=== PATIENT | male | born 1990 | race Caucasian/White ===

== ENCOUNTER 2017-03-11 10:59 | Observation (INO) | payer OTHER ==
--- NOTE | 2017-03-11 11:34 | ED PDOC ---
Lower Extremity Pain/Injury Time Seen by Provider: 03/11/17 11:19 Chief Complaint (Nursing): Lower Extremity Problem/Injury Chief Complaint (Provider): right ankle pain History Per: Patient Additional Complaint(s): 26-year-old male presents to emergency Department with pain to right ankle. Patient states he was running during football game when he felt a pop to posterior right ankle. Patient now unable to bear any weight. Injury occurred about half an hour prior to arrival, patient took cab immediately to ED. Past Medical History Reviewed: Historical Data, Nursing Documentation, Vital Signs Vital Signs: Last Vital Signs Temp 97.6 F 03/11/17 11:04 Pulse 96 H 03/11/17 11:04 Resp 20 03/11/17 11:04 BP 141/89 03/11/17 11:04 Pulse Ox 99 03/11/17 11:04 - Medical History PMH: No Chronic Diseases - Surgical History Surgical History: No Surg Hx - Family History Family History: States: No Known Family Hx - Living Arrangements Living Arrangements: With Family - Social History Current smoker - smoking cessation education provided: No Alcohol: None Drugs: Denies - Home Medications Home Medications: Ambulatory Orders Medication Instructions Recorded No Known Home Med 03/11/17 - Allergies Allergies/Adverse Reactions: Allergies Allergy/AdvReac Type Severity Reaction Status Date / Time Sulfa (Sulfonamide Allergy RASH Verified 03/11/17 11:51 Antibiotics) Wells Criteria for PE - Wells Criteria for Pulmonary Embolism Clinical Signs and Symptoms of DVT: No P.E is #1 Diagnosis, or Equally Likely: No Heart Rate >100: No Immobilization at least 3 days;Surgery previous 4 weeks: No Previous, objectively diagnosed PE or DVT: No Hemoptysis: No Malignancy w/treatment within 6 months, or palliative: No Total Score: 0 Review of Systems ROS Statement: Except As Marked, All Systems Reviewed And Found Negative Constitutional: Positive for: Fever Musculoskeletal: Positive for: Other (right ankle injury) Physical Exam - Reviewed Nursing Documentation Reviewed: Yes Vital Signs Reviewed: Yes - Physical Exam Appears: Positive for: Well, Non-toxic, No Acute Distress Cardiovascular/Chest: Positive for: Regular Rate, Rhythm Respiratory: Positive for: Normal Breath Sounds Extremity: Positive for: Other (swelling and tenderness to posterior right ankle with disruption to normal contour of achilles tendon suspicious for achilles tendon rupture. Positive Gonzalez Test, normal distal sensation to right foot, normal cap refill) Neurologic/Psych: Positive for: Alert, Oriented - Laboratory Results Result Diagrams: 03/11/17 14:30 03/11/17 14:30 - ECG Interpretation Of ECG: NSR 83 bpm with sinus arrhythmia, reviewed by PA and ED attending O2 Sat by Pulse Oximetry: 99 Pulse Ox Interpretation: Normal - Other Rad MRI Right Ankle X-Ray: Read By Radiologist X-Ray Interpretation: ruptured achilles tendon bedside chest X-Ray: Interpreted by Me, Viewed By Me X-Ray Interpretation: no acute finding Medical Decision Making Medical Decision Makin26 year old with right ankle pain Plan: X-ray right ankle Podiatry consult Pain meds declined 11:30 am: Podiatry resident, Emily Stout at bedside. MRI of right ankle ordered to assess for achilles tendon injury. X-ray cancelled. As per podiatry patient will be admitted and will go to OR this evening at about 6 pm. Patient agrees to stay. Patient will be kept NPO. Patient was admitted to medicine catering convention services manager, Jarrell Lamb NP. Disposition - Clinical Impression Clinical Impression: Achilles tendon rupture - Patient ED Disposition Is Patient to be Admitted: Yes - Disposition Disposition Time: 13:58 Condition: FAIR - Pt Status Changed To: Hospital Disposition Of: Inpatient - Admit Certification Admit to Inpatient:: After my assessment, the patient will require hospitalization for at least two midnights. This is because of the severity of symptoms shown, intensity of services needed, and/or the medical risk in this patient being treated as an outpatient. - POA Present On Arrival: None Results - Lab Results Lab Results: 03/11/17 14:30 WBC 13.2 H RBC 5.03 Hgb 15.1 Hct 44.2 MCV 87.8 MCH 30.1 MCHC 34.2 RDW 12.5 Plt Count 275 MPV 9.2 Neut % (Auto) 70.1 Lymph % (Auto) 17.9 L [place] % (Auto) 8.1 Eos % (Auto) 3.6 Baso % (Auto) 0.3 Neut # 9.3 H Lymph # 2.4 [place] # 1.1 H Eos # 0.5 Baso # 0.0 Sodium 145 Potassium 4.2 Chloride 103 Carbon Dioxide 26 Anion Gap 21 H BUN 10 Creatinine 0.7 L Est GFR ( Amer) > 60 Est GFR (Non-Af Amer) > 60 Random Glucose 97 Calcium 9.7 Total Bilirubin 0.7 AST 42 ALT 50 Alkaline Phosphatase 116 Total Protein 8.5 H Albumin 4.5 Globulin 3.9 Albumin/Globulin Ratio 1.1 Blood Type Pending Antibody Screen Pending BBK History Checked No verified bt
--- NOTE | 2017-03-11 12:16 | CP.PCM.CON ---
History of Present Illness - History of Present Illness History of Present Illness: 26 y/o male with no known past medical history seen at bedside in the ED for right ankle injury. patient states that he was playing in a flag football tournament and was running and felt a pop to the back of his right ankle. Patient states that immediately after he could not walk and came to the ED. patient states that he is from outside of [place], just here for a tournament this weekend. Patient states he still has feeling in his foot, denies any numbness, burning or tingling to his foot. Patient denies n/f/v/d/c/ sob. Patient denies any other trauma. Pmhx: denies Pshx: tonsilectomy, wisdom teeth All: NKDA SH: denies smoking, etoh use meds: denies Review of Systems - Constitutional Constitutional: As Per HPI Past Patient History - Infectious Disease Hx of Infectious Diseases: None - Past Social History Alcohol: None Drugs: Denies - PSYCHIATRIC Hx Substance Use: No - SURGICAL HISTORY Hx Tonsillectomy: Yes Meds Allergies/Adverse Reactions: Allergies Allergy/AdvReac Type Severity Reaction Status Date / Time Sulfa (Sulfonamide Allergy RASH Verified 03/11/17 11:51 Antibiotics) Physical Exam - Constitutional Appears: Well, Non-toxic, No Acute Distress - Extremities Exam Additional comments: Vasc: DP/PT 2/4, TG wnl, CFT < 3 sec to all digits Neuro: grossly intact Right lower extremity: mild edema noted posterior ankle, no erythema, no echymoses, no open lesions, no acute clinical signs of infection ortho: pain on palpation at the distal 2/3 of the achilles tendon, +gibbons test, palpable dell of the right posterior achilles 6Cm proximal to insertion, slight pain on PF, no pain on DF, inversion, eversion- patient slightly guarding Results - Vital Signs Recent Vital Signs: Last Vital Signs Temp 97.6 F 03/11/17 11:04 Pulse 96 H 03/11/17 11:04 Resp 20 03/11/17 11:04 BP 141/89 03/11/17 11:04 Pulse Ox 99 03/11/17 12:11 - Labs Result Diagrams: 03/11/17 14:30 03/11/17 14:30 Assessment & Plan - Assessment and Plan (Free Text) Assessment: 26 y/o male seen in the ED for a right leg achilles tendon rupture Plan: patient evaluated and chart reviewed discussed in detail with attending Dr. Galicia labs and vitals reviewed; afebrile. WBC 13.2 MRI shows near/complete rupture of the achilles tendon 5cm proximal to insertion of right leg applied posterior splint with webril, SALMA to RLE discussed in detail treatment options for the patient including conversative and nonconservative treatment including risks, benefits, complications of treatments patient opts for surgical intervention and booked for OR today at 6pm with Dr. Galicia for a primary repair of achilles tendon medical optimization obtained cont. pain mgmt. patient to remain NPO until surgery patient to be admitted for 24 hr. observation podiatry will continue to monitor while patient remains in house
[2017-03-11 14:57] LABS: BASO % 0.3 % (0.0-2.0); EOS # 0.5 K/uL (0.0-0.7); EOS % 3.6 % (0.0-4.0); HEMATOCRIT 44.2 % (35.0-51.0); LYMPH # 2.4 K/uL (1.0-4.3); LYMPH % 17.9 % (20.0-40.0); MEAN CELL VOLUME 87.8 fl (80.0-94.0); MEAN CORPUSCULAR HEMOGLOBIN 30.1 pg (27.0-31.0); MEAN CORPUSCULAR HGB CONC 34.2 g/dL (33.0-37.0); MEAN PLATELET VOLUME 9.2 fl (7.2-11.7); MONO # 1.1 K/uL (0.0-0.8); MONO % 8.1 % (0.0-10.0); NEUT # 9.3 K/uL (1.8-7.0); NEUT % 70.1 % (50.0-75.0); RED CELL DISTRIBUTION WIDTH 12.5 % (11.5-14.5); WHITE BLOOD COUNT 13.2 K/uL (4.8-10.8)
[2017-03-11 15:09] LABS: ALB/GLOB RATIO 1.1 (1.0-2.1); ALKALINE PHOSPHATASE 116 U/L (38-126); ALT/SGPT 50 U/L (21-72); AST/SGOT 42 U/L (17-59); BILIRUBIN,TOTAL 0.7 mg/dl (0.2-1.3); BLOOD UREA NITROGEN 10 mg/dl (9-20); CALCIUM 9.7 mg/dL (8.4-10.2); CARBON DIOXIDE 26 mmol/L (22-30); CHLORIDE 103 mmol/L (98-107); GFR AFRICAN-AMERICAN > 60; GLUCOSE,RANDOM 97 mg/dL (75-110); POTASSIUM 4.2 MMOL/L (3.6-5.0); SODIUM 145 mmol/l (132-148); TOTAL PROTEIN 8.5 G/DL (6.3-8.2)
[2017-03-11 15:21] LABS: PARTIAL THROMBOPLASTIN TIME 28.2 SECONDS (23.3-32.5)
--- NOTE | 2017-03-11 15:33 | RAD ---
HISTORY: Admission. Technique: Single view portable semi erect @ 14:02. COMPARISON: No prior. FINDINGS: LUNGS: No active pulmonary disease. PLEURA: No significant pleural effusion identified, no pneumothorax apparent. CARDIOVASCULAR: Normal. OSSEOUS STRUCTURES: No significant abnormalities. VISUALIZED UPPER ABDOMEN: Normal. OTHER FINDINGS: None. IMPRESSION: No active disease. Concordant results with the preliminary interpretation rendered by the emergency department physician procedure.
--- NOTE | 2017-03-11 15:36 | CP.PCM.HP ---
History of Present Illness - History of Present Illness History of Present Illness: pt admitted for achilles tendon rupture after playing flag football. states was runnignt helt a pop. pain is controlled at present, bw noted-sligth elevation in wbc0-?? r/t inflammaation, mri report note dand case d/c w/ er pa nd pod resident for or today. no complaints. no med/surg hx. allergies noted. cxr neative. ekg wnl. Present on Admission - Present on Admission Any Indicators Present on Admission: No Review of Systems - Musculoskeletal Musculoskeletal: As Per HPI, Arthralgias Past Patient History - Infectious Disease Hx of Infectious Diseases: None - Past Social History Alcohol: None Drugs: Denies - PSYCHIATRIC Hx Substance Use: No - SURGICAL HISTORY Hx Tonsillectomy: Yes Meds Allergies/Adverse Reactions: Allergies Allergy/AdvReac Type Severity Reaction Status Date / Time Sulfa (Sulfonamide Allergy RASH Verified 03/11/17 11:51 Antibiotics) Physical Exam - Constitutional Appears: Well, Non-toxic, No Acute Distress - Head Exam Head Exam: ATRAUMATIC, NORMAL INSPECTION, NORMOCEPHALIC - Eye Exam Eye Exam: EOMI, Normal appearance, PERRL Pupil Exam: NORMAL ACCOMODATION, PERRL - ENT Exam ENT Exam: Mucous Membranes Moist, Normal Exam - Neck Exam Neck exam: Positive for: Normal Inspection - Respiratory Exam Respiratory Exam: Clear to Auscultation Bilateral, NORMAL BREATHING PATTERN - Cardiovascular Exam Cardiovascular Exam: REGULAR RHYTHM, RRR, +S1, +S2 - GI/Abdominal Exam GI & Abdominal Exam: Normal Bowel Sounds, Soft. absent: Tenderness - Extremities Exam Extremities exam: Positive for: full ROM, normal capillary refill, normal inspection, pedal pulses present Additional comments: rle in splint, distal pms intact - Back Exam Back exam: NORMAL INSPECTION - Neurological Exam Neurological exam: Alert, CN II-XII Intact, Normal Gait, Oriented x3, Reflexes Normal - Psychiatric Exam Psychiatric exam: Normal Affect, Normal Mood - Skin Skin Exam: Dry, Intact, Normal Color, Warm Results - Vital Signs Recent Vital Signs: Last Vital Signs Temp 98.5 F 03/11/17 14:44 Pulse 86 03/11/17 14:44 Resp 16 03/11/17 14:44 BP 136/83 03/11/17 14:44 Pulse Ox 99 03/11/17 15:18 - Labs Result Diagrams: 03/11/17 14:30 03/11/17 14:30 Labs: Laboratory Results - last 24 hr 03/11/17 14:30 WBC 13.2 H RBC 5.03 Hgb 15.1 Hct 44.2 MCV 87.8 MCH 30.1 MCHC 34.2 RDW 12.5 Plt Count 275 MPV 9.2 Neut % (Auto) 70.1 Lymph % (Auto) 17.9 L [place] % (Auto) 8.1 Eos % (Auto) 3.6 Baso % (Auto) 0.3 Neut # 9.3 H Lymph # 2.4 [place] # 1.1 H Eos # 0.5 Baso # 0.0 PT 11.4 H INR 1.10 H APTT 28.2 Sodium 145 Potassium 4.2 Chloride 103 Carbon Dioxide 26 Anion Gap 21 H BUN 10 Creatinine 0.7 L Est GFR ( Amer) > 60 Est GFR (Non-Af Amer) > 60 Random Glucose 97 Calcium 9.7 Total Bilirubin 0.7 AST 42 ALT 50 Alkaline Phosphatase 116 Total Protein 8.5 H Albumin 4.5 Globulin 3.9 Albumin/Globulin Ratio 1.1 BBK History Checked No verified bt Assessment & Plan (1) Achilles tendon rupture Assessment and Plan: med cleared for surgery pain control ?? dc in am Status: Acute (2) DVT prophylaxis Assessment and Plan: scd nad ae hose lovenox if admitted and unamulaotry Status: Acute Decision To Admit - Pt Status Changed To: Hospital Disposition Of: Observation - . Bed Request Type: Med/Surg Admitting Physician: Kevin Escalera
[2017-03-11] MEDS: Sodium Chloride 0.9% 1,000 ML IV SCH (15:54)
[2017-03-11] MEDS ORDERED: Bupivacaine 0.5% 50 ML IJ ONE (17:00)
[2017-03-11] MEDS ORDERED: ceFAZolin 1 GM in Sodium Chloride 0.9% 100 ML IVPB ONE (17:00)
[2017-03-11] MEDS ORDERED: Ropivacaine 0.5% 30ML IV ONE (17:46)
[2017-03-11] MEDS ORDERED: Bupivacaine 0.5% Inj(30mL) ONE (18:24)
--- NOTE | 2017-03-11 18:30 | PCM.ANESB2 ---
Popliteal Nerve Block - Popliteal Nerve Block Date of Procedure: 03/11/17 Anesthesiologist: patrizia Pre-Procedure Diagnosis: r achilles tendon injury Post-Procedure Diagnosis: same Procedure Performed: Popliteal Nerve Block Right - Procedure Popliteal Nerve Block: This procedure was explained to the patient that it is for post-operative pain management. Consent was obtained after a thorough discussion with the patient regarding the benefits and possible complications of local anesthetic block of the sciatic nerve at the popliteal level. The patient was brought to the OR holding room and standard monitors are applied. Time-out was held with the surgeon/circulating nurse to confirm the correct surgery and the appropriate block. After applying oxygen by nasal cannula, patient's operative leg was gently raised and supported and the groove in between the biceps femoris and vastus lateralis muscles was carefully palpated. The skin approximately 8cm above the popliteal crease was then marked. The ultrasound transducer was then applied to the posterior thigh approximately 8cm above the popliteal crease in the transverse plane and the sciatic nerve before its division was visualized lateral to the popliteal artery and in between the bicep femoris and semimembranosus/semitendinosus muscles. After identification, the lateral portion of the thigh was prepped with Betadine solution three times and Lidocaine 1% was injected subcutaneously for topical anesthesia. At this point, a # 21 gauge Stimuplex insulated 4 inch needle was inserted into pre-marked area and advanced in a perpendicular direction. The needle was inserted above the ultrasound transducer in-plane towards the sciatic nerve in a [id number] direction. Needle advancement was performed carefully under direct ultrasound visualization. Nerve stimulator was used and dorsiflexion of the __right___ foot was elicited at a current of _2.0____ MA. After repeated negative aspiration, __1___cc of __0.5___ % __ropivicaine was injected and this was flowed with __19____ cc of __0.5____% __ropivicaine ___. Under ultrasound guidance the local anesthetics were observed tenting the epidural sheath and surrounding the roots of the sciatic nerve. The needle was removed intact and sterile dressing was applied. there was no paresthesia during procedure. The patient tolerated the popliteal nerve block well with stable vital signs and was subsequently prepared for the surgery.
[2017-03-11] MEDS ORDERED: Propofol 10 mg/ml Inj (20 ML) ONE (18:31)
[2017-03-11] MEDS ORDERED: Midazolam 2 MG/2 ML VIAL ONE (18:32)
[2017-03-11] MEDS ORDERED: Rocuronium 10 mg/ml (5 ml) ONE (18:32)
[2017-03-11] MEDS ORDERED: Neostigmine Methylsulfate 3mg/3ml Syringe IV ONE (18:32)
[2017-03-11] MEDS ORDERED: Succinylcholine 200 mg/10 ml Inj IV ONE (18:35)
[2017-03-11] MEDS ORDERED: Lactated Ringer's 1,000 ML IV ONE (18:35)
[2017-03-11] MEDS ORDERED: Lactated Ringer's 500 ML IV ONE (20:37)
--- NOTE | 2017-03-11 20:48 | PCM.SURG1 ---
Surgeon's Initial Post Op Note - Surgeon's Notes Surgeon: Dr. Galicia Milieu Manager: Dr. Flores PGY-3, Dr. Stout PGY-1, Dr. Wade PGY-1 Type of Anesthesia: General Endo, Local Anesthesia Administered By: Dr. Solomon Pre-Operative Diagnosis: right leg achilles tendon rupture Operative Findings: see dictation. 2-0 fiberwire. 3-0 vicryl. 3-0 nylon Post-Operative Diagnosis: same as preop Operation Performed: right achilles tendon rupture primary repair Specimen/Specimens Removed: calcific tendon Estimated Blood Loss: EBL {In ML}: 5 Blood Products Given: N/A Drains Used: No Drains Post-Op Condition: Good Date of Surgery/Procedure: 03/11/17 Time of Surgery/Procedure: 18:30
[2017-03-11] MEDS ORDERED: DiphenhydrAMINE 50 mg/ml Inj IVP PRN (20:50)
[2017-03-12 00:50] VITALS: TEMP 98.6; O2SAT 97
--- NOTE | 2017-03-12 03:55 | CP.PCM.PCO ---
Physician Communication Note - Physician Communication Note Physician Communication Note: RN paged pt pain not controlled after dilaudid and morphine was given Additional Comments - Additional Comments Additional Comments: Per pt RN, dilaudid was given around 11:45 then 2hrs later morphine was given but patient still reports severe pain states the medications are not helping at all I went to assess pt at bedside, he reports being in severe since the surgery states he was given a nerve block prior to the surgery that was suppose to help with the pain, but he felt pain and no numbness when the surgeon tested his toes to ask if it was numb. reports he has been in pain since the surgery and normally has high pain tolerance level. he describes pain as throbbing due to the pressure from the dressing and cannot even feel his little toe. Paged Podiatry resident to make aware of pt's current status. PE pt able to move toes, toes does not appear red, does not feel excessively hot or cold sensation is present plan extra dose of dilaudid ordered by podiatry pt's lower extremity dressing lossened up above the achilles- pain/pressure improved (podiatry made aware) consider [employer] pump for pain management Podiatry made aware of events, will address first thing in the morning.
[2017-03-12] MEDS: Sodium Chloride 0.9% 500 ML IV SCH ×3 (04:14→09:06)
[2017-03-12 07:57] VITALS: BP 163/85; PULSE 77; RESP 20
[2017-03-12] MEDS: Sodium Chloride 0.9% 1,000 ML IV SCH (08:18)
--- NOTE | 2017-03-12 08:22 | CP.PCM.PN ---
Subjective - Date & Time of Evaluation Date of Evaluation: 03/12/17 Time of Evaluation: 08:22 Objective - Vital Signs/Intake and Output Vital Signs (last 24 hours): Temp Pulse Resp BP Pulse Ox 98.6 F 77 20 163/85 H 97 03/12/17 07:56 03/12/17 07:56 03/12/17 07:56 03/12/17 07:56 03/12/17 07:56 Intake and Output: 03/12/17 03/12/17 06:59 18:59 Intake Total 300 Balance 300 - Medications Medications: Current Medications Diphenhydramine HCl (Benadryl) 50 mg IVP Q6 PRN PRN Reason: Itching / Pruritus Hydromorphone HCl (Dilaudid) 0.5 mg IVP Q5MIN PRN PRN Reason: Pain, moderate (4-7) Stop: 03/14/17 20:49 Last Admin: 03/11/17 21:52 Dose: 0.5 mg Hydromorphone HCl (Dilaudid) 1 mg IVP Q4 PRN PRN Reason: Pain, severe (8-10) Last Admin: 03/12/17 08:15 Dose: 1 mg Hydromorphone HCl (Dilaudid) 1 mg IVP STAT PRN PRN Reason: Pain, severe (8-10) Last Admin: 03/12/17 03:46 Dose: 1 mg Sodium Chloride (Sodium Chloride 0.9%) 1,000 mls @ 125 mls/hr IV .Q8H SHERLY Stop: 03/12/17 15:46 Last Admin: 03/12/17 08:18 Dose: 125 mls/hr Sodium Chloride (Sodium Chloride 0.9%) 500 mls @ 150 mls/hr IV .Q3H20M [facility] Last Admin: 03/12/17 08:08 Dose: Not Given Morphine Sulfate (Morphine) 2 mg IVP Q4 PRN PRN Reason: pain 2-10 Last Admin: 03/12/17 01:07 Dose: 2 mg Ondansetron HCl (Zofran Inj) 4 mg IVP Q4 PRN PRN Reason: Nausea/Vomiting - Labs Labs: 03/11/17 14:30 03/11/17 14:30 PT 11.4 SECONDS (9.6-11.2) H 03/11/17 14:30 INR 1.10 (0.92-1.08) H 03/11/17 14:30 APTT 28.2 SECONDS (23.3-32.5) 03/11/17 14:30 Assessment and Plan (1) Achilles tendon rupture Status: Acute (2) DVT prophylaxis Status: Acute
--- NOTE | 2017-03-12 11:03 | CP.PCM.DIS ---
Provider - Provider Date of Admission: 03/11/17 13:58 Attending physician: Kevin Escalera MD Time Spent in preparation of Discharge (in minutes): 15 Diagnosis - Discharge Diagnosis (1) Achilles tendon rupture Status: Acute (2) DVT prophylaxis Status: Acute Hospital Course - Lab Results Lab Results: Most Recent Lab Values WBC 13.2 K/uL (4.8-10.8) H 03/11/17 14:30 RBC 5.03 Mil/uL (4.40-5.90) 03/11/17 14:30 Hgb 15.1 g/dL (12.0-18.0) 03/11/17 14:30 Hct 44.2 % (35.0-51.0) 03/11/17 14:30 MCV 87.8 fl (80.0-94.0) 03/11/17 14:30 MCH 30.1 pg (27.0-31.0) 03/11/17 14:30 MCHC 34.2 g/dL (33.0-37.0) 03/11/17 14:30 RDW 12.5 % (11.5-14.5) 03/11/17 14:30 Plt Count 275 K/uL (130-400) 03/11/17 14:30 MPV 9.2 fl (7.2-11.7) 03/11/17 14:30 Neut % (Auto) 70.1 % (50.0-75.0) 03/11/17 14:30 Lymph % (Auto) 17.9 % (20.0-40.0) L 03/11/17 14:30 [place] % (Auto) 8.1 % (0.0-10.0) 03/11/17 14:30 Eos % (Auto) 3.6 % (0.0-4.0) 03/11/17 14:30 Baso % (Auto) 0.3 % (0.0-2.0) 03/11/17 14:30 Neut # 9.3 K/uL (1.8-7.0) H 03/11/17 14:30 Lymph # 2.4 K/uL (1.0-4.3) 03/11/17 14:30 [place] # 1.1 K/uL (0.0-0.8) H 03/11/17 14:30 Eos # 0.5 K/uL (0.0-0.7) 03/11/17 14:30 Baso # 0.0 K/uL (0.0-0.2) 03/11/17 14:30 PT 11.4 SECONDS (9.6-11.2) H 03/11/17 14:30 INR 1.10 (0.92-1.08) H 03/11/17 14:30 APTT 28.2 SECONDS (23.3-32.5) 03/11/17 14:30 Sodium 145 mmol/l (132-148) 03/11/17 14:30 Potassium 4.2 MMOL/L (3.6-5.0) 03/11/17 14:30 Chloride 103 mmol/L (98-107) 03/11/17 14:30 Carbon Dioxide 26 mmol/L (22-30) 03/11/17 14:30 Anion Gap 21 (10-20) H 03/11/17 14:30 BUN 10 mg/dl (9-20) 03/11/17 14:30 Creatinine 0.7 mg/dL (0.8-1.5) L 03/11/17 14:30 Est GFR ( Amer) > 60 03/11/17 14:30 Est GFR (Non-Af Amer) > 60 03/11/17 14:30 Random Glucose 97 mg/dL (75-110) 03/11/17 14:30 Calcium 9.7 mg/dL (8.4-10.2) 03/11/17 14:30 Total Bilirubin 0.7 mg/dl (0.2-1.3) 03/11/17 14:30 AST 42 U/L (17-59) 03/11/17 14:30 ALT 50 U/L (21-72) 03/11/17 14:30 Alkaline Phosphatase 116 U/L (38-126) 03/11/17 14:30 Total Protein 8.5 G/DL (6.3-8.2) H 03/11/17 14:30 Albumin 4.5 g/dL (3.5-5.0) 03/11/17 14:30 Globulin 3.9 gm/dL (2.2-3.9) 03/11/17 14:30 Albumin/Globulin Ratio 1.1 (1.0-2.1) 03/11/17 14:30 Blood Type A POSITIVE 03/11/17 14:30 Blood Type Confirm A POSITIVE 03/11/17 14:59 Antibody Screen Negative 03/11/17 14:30 BBK History Checked No verified bt 03/11/17 14:30 Discharge Exam - Head Exam Head Exam: ATRAUMATIC, NORMAL INSPECTION, NORMOCEPHALIC - Eye Exam Eye Exam: EOMI, Normal appearance, PERRL Pupil Exam: NORMAL ACCOMODATION, PERRL - Respiratory Exam Respiratory Exam: Clear to PA & Lateral, NORMAL BREATHING PATTERN, UNREMARKABLE - Cardiovascular Exam Cardiovascular Exam: REGULAR RHYTHM, RRR, +S1, +S2 - GI/Abdominal Exam GI & Abdominal Exam: Normal Bowel Sounds - Extremities Exam Extremities exam: full ROM, normal capillary refill, normal inspection, pedal pulses present - Back Exam Back exam: FULL ROM - Neurological Exam Neurological exam: Alert, CN II-XII Intact, Normal Gait, Oriented x3, Reflexes Normal - Psychiatric Exam Psychiatric exam: Normal Affect, Normal Mood - Skin Skin Exam: Dry, Intact, Normal Color, Warm Discharge Plan - Discharge Medications Prescriptions: oxyCODONE/Acetaminophen [Percocet 5/325 mg Tab] 1 tab PO Q4H PRN #20 tab PRN Reason: pain - Follow Up Plan Condition: FAIR Disposition: HOME/ ROUTINE Instructions: Crutch Instructions (DC), Achilles Tendon Rupture (GEN) Additional Instructions: Follow up with Orthopedic. had pain overnight but comfrotable at [employer]. cleared by podiatry to go home. rx for keflex/percocet from dr romero in [facility] f/u ortho in [facility]. rted prn. med spe rmed rec final dx-r achilles tendon rupture w/ repair
--- NOTE | 2017-03-12 20:57 | CARD ---
APPROVED REPORT EKG Measurement Heart [id number] IA [id number] <Conclusion> Normal sinus rhythm with sinus arrhythmia Normal ECG
--- NOTE | 2017-03-12 21:35 | MRI ---
MRI right hindfoot History: Achilles tendon rupture. Comparison: None available. Technique: Multi-echo multiplanar sequences were performed through the right hindfoot without the use of intravenous contrast. Findings: Complete rupture of the distal Achilles tendon approximately 4.5 centimeters from its insertion on the posterior calcaneus. 2 millimeter diastases of the tendon fragments. Large amount of fluid, edema, and hemorrhage within the Achilles tendon tract. High-grade muscle strain at the myotendinous junction and muscle belly. Small ankle joint effusion. Visualized osseous structures are preserved. Anterior extensor tendons are preserved. Mild tenosynovitis of the posterior tibial tendon sheath. Remainder of the medial flexor tendons are preserved. Peroneal tendons are preserved. Anterior and posterior tibiofibular ligaments are preserved. Anterior and posterior talofibular ligaments are preserved. Deltoid ligament is preserved. Impression: 1. Complete rupture of the distal Achilles tendon approximately 4.5 centimeters from its insertion on the posterior calcaneus. 2 millimeter diastases of the tendon fragments. Large amount of fluid, edema, and hemorrhage within the Achilles tendon tract. High-grade muscle strain at the myotendinous junction and muscle belly. 2. Small ankle joint effusion. 3. Mild tenosynovitis of the posterior tibial tendon sheath.
--- NOTE | 2017-03-13 07:12 | OP ---
PROCEDURE DATE: 03/11/2017 SURGEON: Gary Galicia DPM CLASSIFIED ADVERTISING MANAGER: Sandra, PGY-3 SECOND LEAD TRAINER: ____, PGY-1 THIRD LEAD TRAINER: Sheri, PGY-1 ANESTHESIA: General anesthesia with popliteal block. PREOPERATIVE DIAGNOSIS: Right Achilles tendon rupture. POSTOPERATIVE DIAGNOSIS: Right Achilles tendon rupture. PROCEDURE: Primary repair of right Achilles tendon rupture. INDICATIONS: The patient is a 26-year-old male with the above-mentioned diagnosis. The patient was playing flag football earlier this afternoon where, after a sharp pivoting motion, he felt a pop in h is selena followed by pain. The patient has exhausted all conservative treatment and is now requesting surgical intervention. The patient signed the consent after careful explanation of all risks, benef its, complications and alternatives for the surgical procedure. No guarantees were given nor implied . PREPARATION: The patient was brought into the operating room, placed on the operating room table in the prone position. After induction of general anesthesia, the patient's right lower extremity was p repped and draped in usual sterile manner. At this time, the patient's right lower extremity was exs anguinated with Esmarch and the right pneumatic thigh tourniquet was inflated to 350 mmHg and the pro cedure began. PROCEDURE #1: PRIMARY REPAIR OF RIGHT ACHILLES TENDON RUPTURE: Attention was directed to the log deckman ior aspect of the patient's right lower extremity. Utilizing a #15 blade, a 10 cm linear longitudina l incision was created in the central aspect of the patient's posterior calf musculature. The incisi on was deepened through subcutaneous tissue with care being taken to identify and retract all vital n eurovascular structures. All bleeders were cauterized and ligated as necessary. At this time, disse ction was carried down to the level of the patient's gastrocnemius muscle and Achilles tendon utilizi ng a #15 blade. The peritenon was incised in a linear longitudinal fashion and carefully dissected f ree of its tendinous attachments and reflected medially and laterally, exposing the patient's Fletcher s tendon as well as the tear into the operative field. Upon inspection of the rupture, the rupture p resented as a complete rupture and along with being a rupture from proximal to distal, there is also a rupture of anterior creating anterior and posterior segment. It is to be noted that upon inspectio n of the patient's Achilles tendon it was noted to be extremely thin and flattened. Also, it was not ed that the patient had an extremely low lying soleus muscle belly. At this time, the distal and pro ximal fragments were isolated and, with the foot held in slight plantar flexion, the proximal and dis nataliya parts of the Achilles tendon were then laid over one another and then were tacked down, held unde r physiologic tension with the foot held in slight plantar flexion utilizing 2 FiberWire. Next, util izing a new 2 FiberWire, the Achilles tendon rupture was prepared utilizing a Toone type stitch, an d then the repair was augmented utilizing 2-0 FiberTape in a running interlocking stitch on the perim eter of the tendon both medially and laterally. At this time, once proper tension was noted with the foot held in slight plantar flexion, the incision was flushed with copious amounts of normal sterile saline. The peritenon was reapproximated and coapted utilizing 2-0 Vicryl, the subcutaneous tissue was reapproximated and coapted utilizing 2-0 and 3-0 Vicryl, and the skin was reapproximated and coap sabas utilizing 4-0 nylon in horizontal mattress and simple suture technique. The patient received a p ostoperative injection of 10 mL of 0.5% Marcaine plain to augment the popliteal block that had been a dministered in the OR holding before the procedure had begun. The incision site was dressed in Betad ine-soaked Adaptic and DSD, and the patient was placed in a well-padded splint with the foot held in slight plantarflexion in relation to the leg. POSTOPERATIVE CONDITION: The patient tolerated the procedure and anesthesia well and was escorted to recovery with all vital signs stable and neurovascular status intact. It is to be noted that the pa tient will be nonweightbearing in a posterior splint with crutches. The patient is from [place] and states that he has an orthopedist there, so he will follow up with his orthopedist in [facility] when he gets home. Mindy Courtney DPM Gary Galicia DPM cc: [id number] TT: 03/13/2017 07:11:40 mn
== END 2017-03-12 11:00 | disposition home or self-care (01) ==
LOC: H.ER 10:59 → INTOOBSV 13:58 → H.ERHOLD 13:58 → H.MEDSURG1 15:16
PROVIDERS: ADMIT Family Medicine; ATTEND Family Medicine
DX: S86.011A Strain of right Achilles tendon, initial encounter (principal); Y93.02 Activity, running; Y93.62 Activity, american flag or touch football; Y92.830 Public park as the place of occurrence of the external cause; Z88.2 Allergy status to sulfonamides